=== PATIENT | male | born 1970 ===

== ENCOUNTER 2024-11-23 14:38 | Emergency (ER) | payer SELFPAY ==
--- NOTE | ~2024-11-23 | XR_ITS ---
EXAMINATION: XR WRIST 3 OR MORE VIEWS LEFT HISTORY: pain COMPARISON: Comparison is made with the prior examination dated 11/12/2017. FINDINGS: Four views of the left wrist including a scaphoid view are submitted. Osseous mineralization is normal. There is no fracture or dislocation. The joint spaces are preserved. The soft tissues are unremarkable. XR/XR wrist LT min 3V IMPRESSION: Unremarkable examination of the left wrist. Electronically signed by: Lebron Smalls MD 11/23/2024 03:35 PM EDT
[2024-11-23 15:07] VITALS: BP 141/92; PULSE 71; RESP 16; TEMP 36.3; O2SAT 97; BMI 25.9
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
[2024-11-23 18:24] VITALS: BP 141/92; PULSE 71; RESP 16; TEMP 36.3; O2SAT 97
== END 2024-11-23 18:40 | disposition home or self-care (01) ==
PROVIDERS: Emergency Provider Emergency Medicine Emergency Medical Services
DX: Z04.1 Encounter for examination and observation following transport accident (principal); G89.11 Acute pain due to trauma; M25.532 Pain in left wrist
CPT/HCPCS: 73110; 99283

== ENCOUNTER → 2024-11-23 15:11 | Outpatient (BNV) | payer SELFPAY | PROVIDERS: Visit Provider Radiology Diagnostic Radiology | DX: M25.532 Pain in left wrist (principal) | CPT/HCPCS: 73110 ==